=== PATIENT | male | born 1950 | race Caucasian/White ===

== ENCOUNTER 2019-04-09 22:58 | Emergency (ER) | payer MEDICARE, BC, SELFPAY ==
[2019-04-09 23:00] VITALS: BP 150/90; PULSE 69; RESP 15; TEMP 36.8; O2SAT 97; BMI 27.2
--- NOTE | 2019-04-09 23:20 | DI.RAD.S_ITS ---
PROCEDURE: XR CHEST 1V INDICATIONS: chest pain TECHNIQUE: One view of the chest was acquired. COMPARISON: [facility], CT, ABDOMEN/PELVIS WITH CONTRAST, 03/06/2017, 0:24. [facility], CR, CHEST 2 VIEW, 01/24/2010, 12:30. FINDINGS: Surgical changes and devices: None. Lungs and pleura: Lungs are clear. No pleural effusions or pneumothorax. Mediastinum: Mediastinal contours appear normal. Heart size is normal. Moderate to large retrocardiac hiatal hernia. Bones and chest wall: No suspicious bony lesions. Overlying soft tissues appear unremarkable. IMPRESSION: No acute cardiopulmonary disease process. Dictated by: Sammie Hope MD, PhD on 04/10/2019 at 7:31 Approved by: Sammie Hope MD, PhD on 04/10/2019 at 7:32
[2019-04-09] MEDS: PANTOPRAZOLE 40 MG VIAL IV (23:28)
[2019-04-09 23:35] LABS: Add Manual Diff / Slide Review NO; Basophils Absolute Auto 0 /uL (0-100); Basophils Percent Auto 0.3 % (0-2); Eosinophils Absolute Auto 200 /uL (0-450); Eosinophils Percent Auto 2.3 % (2-4); Hematocrit 47.1 % (41-53); Hemoglobin 16.3 g/dL (13.5-17.5); Lymphocytes Absolute Auto 1600 /uL (1100-4500); Lymphocytes Percent Auto 21.5 % (25-40); Mean Corpuscular HGB Conc 34.5 % (30-36); Mean Corpuscular Hemoglobin 31.9 PG (26-34); Mean Corpuscular Volume 92.6 fL (80-100); Monocytes Absolute Auto 600 /uL (0-900); Monocytes Percent Auto 7.9 % (3-14); Neutrophils Absolute Auto 5000 /uL (1500-7000); Platelet Count 205 X10^3/uL (150-400); Red Blood Cell Count 5.09 X10^6/uL (4.5-5.9); Red Cell Distribution Width 14.7 % (11.6-14.8); White Blood Cell Count 7.4 X10^3/uL (4.5-11.0)
[2019-04-09 23:58] LABS: Alanine Aminotransferase 36 IU/L (21-72); Albumin Globulin Ratio 1.4 (1.0-2.8); Alkaline Phosphatase 60 U/L (38-126); Aspartate Aminotransferase 30 IU/L (17-59); Bilirubin Total 0.6 mg/dL (0.2-1.3); Blood Urea Nitrogen 22 mg/dL (9-20); Calcium 9.3 mg/dL (8.4-10.2); Carbon Dioxide 25 mmol/L (22-32); Chloride 103 mmol/L (98-107); Creatine Kinase 73 U/L (55-170); Estimated Glomerular Filt Rate > 60.0 mL/min (>60); Globulin 2.9 g/dL (1.7-4.1); Glucose 117 mg/dL (80-110); HEMOLYSIS 16 (0-50); Lipase 505 U/L (23-300); Potassium 4.1 mmol/L (3.4-5.1); Sodium 138 mmol/L (137-145); Total Protein 6.9 g/dL (6.3-8.2)
[2019-04-10] VITALS: BP 128/71; PULSE 65; RESP 14; O2SAT 94
[2019-04-10 00:08] LABS: Prothrombin Time 11.7 SECONDS (10.1-12.7)
[2019-04-10 00:09] LABS: Troponin I < 0.012 ng/mL (0.01-0.034)
[2019-04-10 00:11] LABS: PTT Partial Thromboplastin Tim 29 SECONDS (26.4-36.2)
--- NOTE | 2019-04-10 00:44 | ED.CHESTPAIN ---
HPI - Chest Pain General Chief Complaint: Chest Pain Stated Complaint: CHEST PAIN Time Seen by Provider: 04/10/19 00:27 Source: patient Mode of arrival: ambulatory Limitations: no limitations History of Present Illness HPI narrative: The patient developed epigastric pain radiating to the chest about 5:00 p.m. this evening. The pain shot from the epigastric area up through his chest. There is no associated back pain. He has no dyspnea. He has no nausea, vomiting or diarrhea. He has a known history of GERD. He is on no GI medications. He admits to having tolerance only for small meals. He is not having chronic pain frequently. He has not coughed up any blood. He has no significant cardiac history. While driving here the pain went away. There is no history of gallbladder disease or gallstones. He is a nonsmoker. He does not drink significant alcohol. He has no history of pancreatitis. Related Data Home Medications Medication Instructions Recorded Confirmed anastrozole 1 mg PO QDAY #0 04/28/17 05/23/18 testosterone cypionate 200 mg IM X1 #0 04/28/17 05/23/18 [Depo-Testosterone] Previous Rx's Medication Instructions Recorded omeprazole magnesium [Prilosec OTC] 20 mg PO QDAY #30 03/06/17 [Zaaz therapeutic dev] ea #1 01/03/18 Allergies Allergy/AdvReac Type Severity Reaction Status Date / Time No Known Drug Allergies Allergy Verified 05/23/18 10:28 Review of Systems Review of Systems ROS Unobtainable: All systems reviewed & are unremarkable except as noted in HPI and below Constitutional Denies body ache(s), Denies chills, Denies fatigue, Denies fever(s), Denies lethargy and Denies weakness Eyes Denies change in vision and Reports other (No color change to his eyes.) ENT Ears, Nose, Mouth, and Throat: Denies neck pain and Denies sore throat Cardiovascular Denies chest pain, Denies lightheadedness, Denies palpitations, Denies dyspnea and Denies orthopnea Respiratory Denies cough, Denies dyspnea and Denies wheezing Gastrointestinal Gastrointestinal: Reports abdominal pain, Denies bloating, Denies change in bowel habits, Reports early satiety, Denies diarrhea, Denies nausea and Denies vomiting Genitourinary Denies dysuria Musculoskeletal Denies back pain and Denies neck pain Integumentary/Breasts Denies rash, Denies wounds and Denies jaundice Neurologic Denies confusion and Denies weakness Psychiatric Denies anxiety, Denies confusion, Denies depression, Denies homicidal ideation and Denies suicidal ideation Endocrine Denies fatigue and Denies palpitations Allergic/Immunologic Denies wheezing [facility] Surgical History Hx of eye surgery (Resolved 1972) Family History Father Emphysema lung Mother No problems noted. Social History Smoking Status: Never smoker alcohol intake: never substance use type: does not use Family History Father Emphysema lung Mother No problems noted. Social History Smoking Status: Never smoker alcohol intake: never substance use type: does not use Exam Initial Vital Signs Initial Vital Signs: Vital Signs Temperature 98.3 F 04/09/19 23:00 Pulse Rate 69 04/09/19 23:00 Respiratory Rate 15 04/09/19 23:00 Blood Pressure 150/90 H 04/09/19 23:00 Pulse Oximetry 97 04/09/19 23:00 Const General: cooperative and well developed Nutritional Appearance: well nourished Orientation: alert, awake and oriented x3 HENMT Head: normocephalic and atraumatic Face and sinus: sinuses nontender and No dry mucous membranes Mouth: oral mucosae normal Throat: tonsils normal and uvula midline Eyes General: appearance normal, both eyes and all related structures Eyelids: eyelids normal Conjunctivae: conjunctivae normal Sclera: sclerae normal Pupils: PERRL EOM: EOM intact bilaterally Resp Effort & Inspection: normal respiratory effort, able to speak in complete sentences, no respiratory distress and no use of accessory muscles Auscultation: clear to auscultation bilaterally, no rales, no rhonchi and no wheezes Cardio Rate: regular rate Rhythm: regular rhythm Heart Sounds: no click, no gallops, no murmurs and no rubs Pulses: normal peripheral pulses GI Inspection: non-distended Palpation: soft, no hepatosplenomegaly, No guarding, No pulsatile mass and No tender Auscultation: normal bowel sounds Skin General: no rashes or lesions noted, No jaundice and No petechiae Neuro General: alert, oriented x3, gait normal and no focal motor deficits Speech: speech normal Extrem General: full ROM, no clubbing, cyanosis or edema, no pedal edema and no calf tenderness Psych Appearance: well kempt Mental Status: mental status grossly normal Attitude: cooperative Thought Content: normal and suicidality Judgment: judgment good Course Orders Ordered: ED Orders 04/09/19 23:15 Complete Blood Count AUTO DIFF Stat Comprehensive Metabolic Panel Stat Lipase Stat Partial Thromboplastin Time Stat Prothrombin Time INR Stat Troponin & CK Cardiac Panel Stat 04/09/19 23:20 XR chest 1V Stat EKG-12 Lead Stat 04/10/19 00:45 US abdomen limited Stat Discontinued Medications Pantoprazole Sodium (Protonix) 40 mg IV NOW ONE Stop: 04/09/19 23:26 Last Admin: 04/09/19 23:28 Dose: 40 mg Vital Signs - 8 hr 04/09/19 23:00 04/10/19 00:00 04/10/19 01:05 Temperature 98.3 F Pulse Rate 69 65 67 Respiratory Rate 15 14 21 Blood Pressure 150/90 H Blood Pressure [Left Arm] 128/71 151/84 H Pulse Oximetry 97 94 96 04/10/19 01:30 04/10/19 02:28 Temperature Pulse Rate 64 66 Respiratory Rate 14 10 L Blood Pressure Blood Pressure [Left Arm] 122/79 131/68 Pulse Oximetry 97 96 MDM - Chest Pain Lab Data Result diagrams: 04/09/19 23:15 04/09/19 23:15 Lab Results 04/09/19 04/09/19 04/09/19 Range/Units 23:15 23:15 23:15 WBC 7.4 (4.5-11.0) X10^3/uL RBC 5.09 (4.5-5.9) X10^6/uL Hgb 16.3 (13.5-17.5) g/dL Hct 47.1 (41-53) % MCV 92.6 (80-100) fL MCH 31.9 (26-34) PG MCHC 34.5 (30-36) % RDW 14.7 (11.6-14.8) % Plt Count 205 (150-400) X10^3/uL Neut % (Auto) 68.0 (50-75) % Lymph % (Auto) 21.5 L (25-40) % [place] % (Auto) 7.9 (3-14) % Eos % (Auto) 2.3 (2-4) % Baso % (Auto) 0.3 (0-2) % Neut # (Auto) 5000 (0555-2621) /uL Lymph # (Auto) 1600 (7714-6734) /uL [place] # (Auto) 600 (0-900) /uL Eos # (Auto) 200 (0-450) /uL Baso # (Auto) 0 (0-100) /uL PT 11.7 (10.1-12.7) SECONDS INR 1.0 (0.9-1.3) APTT 29 (26.4-36.2) SECONDS Sodium 138 (137-145) mmol/L Potassium 4.1 (3.4-5.1) mmol/L Chloride 103 (98-107) mmol/L Carbon Dioxide 25 (22-32) mmol/L BUN 22 H (9-20) mg/dL Creatinine 1.00 (0.66-1.25) mg/dL Estimated GFR > 60.0 (>60) mL/min BUN/Creatinine Ratio 22.0 (6-22) Glucose 117 H (80-110) mg/dL Calcium 9.3 (8.4-10.2) mg/dL Total Bilirubin 0.6 (0.2-1.3) mg/dL AST 30 (17-59) IU/L ALT 36 (21-72) IU/L Alkaline Phosphatase 60 (38-126) U/L Total Creatine Kinase 73 (55-170) U/L CK-MB (CK-2) TNP CK-MB (CK-2) Rel Index TNP Troponin I < 0.012 (0.01-0.034) ng/mL Total Protein 6.9 (6.3-8.2) g/dL Albumin 4.0 (3.5-5.0) g/dL Globulin 2.9 (1.7-4.1) g/dL Albumin/Globulin Ratio 1.4 (1.0-2.8) Lipase 505 H (23-300) U/L Imaging Data US - abdomen: Radiologist's impression: 1. The pancreas is not well visualized due to overlying bowel gas. 2. The gallbladder contains a tiny 3 mm polyp. No further findings. 3. No gallstones or biliary ductal dilatation. ECG Data Attestation: I personally reviewed and interpreted this ECG as follows: (Normal sinus rhythm rate 69 beats per minute. No acute ST T wave changes. No ectopy. Normal intervals.) Discharge Plan Departure Patient Disposition: Home Clinical Impression: Pancreatitis Discharge Date/Time: 04/10/19 02:54 Interventions: ED Discharge Assessment Last Done: 04/10/19 02:53 Instructions: Acute Pancreatitis Activity Restrictions/Additional Instructions: I would recommend a high water, low-fat diet for the next few days. Contact Dr. Ignacio Myles in [place] to arrange follow-up. Return to the ER for increasing pain, fever or vomiting. Prescriptions: No Action omeprazole magnesium [Prilosec OTC] 20 MG tablet,delayed release (DR/EC) 20 mg PO QDAY Qty: 30 RF: 0 anastrozole 1 MG tablet 1 mg PO QDAY Qty: 0 RF: 0 testosterone cypionate [Depo-Testosterone] 200 MG/1 ML oil 200 mg IM X1 Qty: 0 RF: 0 [Zaaz therapeutic dev] Qty: 1 RF: 0
--- NOTE | 2019-04-10 00:45 | DI.US.S_ITS ---
PROCEDURE: US ABDOMEN LIMITED INDICATIONS: PANCREATITIS TECHNIQUE: Real-time focused scanning was performed of the abdomen, with image documentation. COMPARISON: None. FINDINGS: Liver is normal size and echotexture where well visualized. Left lobe of the liver is poorly visualized due to bowel gas. Small 3.1 mm polyp is noted in the gallbladder. No gallbladder wall thickening. No pericholecystic fluid. No gallstones. No sonographic Gabriel sign. No intrahepatic or extrahepatic biliary tree dilatation. The common bile duct measures 6.6 mm. Pancreas obscured by bowel gas and cannot be evaluated. IMPRESSION: 1. Pancreas obscured by bowel gas and cannot be evaluated. 2. 3 mm gallbladder polyp. 4. No cholelithiasis or biliary ductal dilatation Dictated by: Sammie Hope MD, PhD on 04/10/2019 at 8:07 Approved by: Sammie Hope MD, PhD on 04/10/2019 at 8:08
[2019-04-10 01:05] VITALS: BP 151/84; PULSE 67; RESP 21; O2SAT 96
[2019-04-10 01:30] VITALS: BP 122/79; PULSE 64; RESP 14; O2SAT 97
[2019-04-10 02:28] VITALS: BP 131/68; PULSE 66; RESP 10; O2SAT 96
== END 2019-04-10 02:54 | disposition home or self-care (01) ==
PROVIDERS: Emergency Provider Emergency Medicine
DX: K85.90 Acute pancreatitis without necrosis or infection, unspecified (principal); R07.89 Other chest pain
CPT/HCPCS: 36591; 71045; 76705; 80053; 82550; 82553; 83690; 84484; 85025; 85610; 85730; 93005; 93010; 96374; 99283; 99285; C9113

== ENCOUNTER → 2019-05-01 15:42 | Outpatient (CLI) | payer MEDICARE, BC, SELFPAY ==
--- NOTE | 2019-05-01 | DI.MRI.S_ITS ---
PROCEDURE: MR ABDOMEN WO CON INDICATIONS: Acute pancreatitis without necrosis or infection TECHNIQUE: Coronal HASTE through the abdomen, axial 2-D FLASH in- and [id number], and breath-hold T2 FSE with fat saturation through the biliary system and pancreas. Oblique coronal and axial thin-slice HASTE, radial thick-slab HASTE centered on the extrahepatic bile ducts. Intravenous secretin: Not requested. COMPARISON: [facility], , ABDOMEN LIMITED, 04/10/2019, 1:11. FINDINGS: Image quality: Excellent. Pancreas and biliary system: Intra- and extra-hepatic biliary ducts are non dilated. Pancreas is normal in morphology, without adjacent soft tissue edema. Pancreatic duct is normal in caliber, without developmental anomalies. Gallbladder does not appear inflamed or to contain gallstones. Other solid organs: Liver is normal in size. Spleen is normal in size. No adrenal nodules. Both kidneys are normal in size, without hydronephrosis. Nodes and vessels: No retroperitoneal or mesenteric adenopathy by size criteria. Aorta and inferior vena cava are normal in size. Bowel and peritoneum: Unenhanced bowel loops are normal in caliber. No free fluid. Note is made of a large hiatal hernia behind the heart with a morphology suggestive of gastric inversion possibly with the greater curvature of the stomach directed cephalad within the lower posterior chest. Lung bases: No basal pleural effusions. Heart size is normal. Bones and soft tissues: No ventral hernias. Bone marrow is of normal overall signal. IMPRESSION: A common duct calculus is not found, peripancreatic edema is not identified. Pancreatitis has been reported clinically, but appears mild in overall severity. A pancreatic mass is not seen. Note is made of a large hiatal hernia behind the heart, with a morphology suggestive of gastric inversion with the greater curvature of the stomach appearing directed cephalad. No associated inflammation. Dictated by: Taras Dang M.D. on 05/01/2019 at 17:18 Approved by: Taras Dang M.D. on 05/01/2019 at 17:21
== END ==
PROVIDERS: PCP Internal Medicine; Visit Provider Internal Medicine
DX: K85.90 Acute pancreatitis without necrosis or infection, unspecified (principal); K44.9 Diaphragmatic hernia without obstruction or gangrene
CPT/HCPCS: 74181

== ENCOUNTER → 2021-07-21 15:14 | Outpatient (CLI) | payer MEDICARE, BC, SELFPAY ==
--- NOTE | 2021-07-21 | DI.RAD.S_ITS ---
PROCEDURE: XR FOOT LT MIN 3V INDICATIONS: PAIN TECHNIQUE: 3 views of the foot were acquired. COMPARISON: [facility], , FOOT 3V RIGHT, 04/28/2017, 10:29. FINDINGS: Bones: No fractures or dislocations. No suspicious bony lesions. Mild hallux valgus metatarsus prima varus alignment and medial bunion. Mild 1st MTP and diffuse interphalangeal joint space narrowing. Retrocalcaneal bone spur. Soft tissues: No tibiotalar joint effusion. Achilles tendon appears normal. IMPRESSION: 1. Mild hallux valgus alignment and medial bunion. 2. Mild 1st MTP and diffuse interphalangeal joint degeneration. 3. Calcaneal enthesopathy. Dictated by: Blayne Quiroga [facility] Interpreted: Crow Mosquera MD on 07/21/2021 at 16:05 Transcribed by: CHRISTA on 07/21/2021 at 16:06 Approved by: Crow Mosquera M.D. on 07/21/2021 at 17:04
--- NOTE | 2021-07-21 | DI.RAD.S_ITS ---
PROCEDURE: XR THORACIC SPINE 3V INDICATIONS: PAIN TECHNIQUE: 3 views of the thoracic spine were acquired. COMPARISON: None. FINDINGS: Bones: No fractures or dislocations. No suspicious bony lesions. 12 pairs of ribs are noted, and appear intact where visualized. Mild dextrocurvature centered at the T5 level. Mild multilevel disc degeneration. Soft tissues: No paravertebral stripe thickening. IMPRESSION: Mild multilevel disc degeneration. Dictated by: Blayne Quiroga [facility] Interpreted: Crow Mosquera MD on 07/21/2021 at 16:09 Transcribed by: CHRISTA on 07/21/2021 at 16:09 Approved by: Crow Mosquera M.D. on 07/21/2021 at 17:05
--- NOTE | 2021-07-21 | DI.RAD.S_ITS ---
PROCEDURE: XR FOOT RT MIN 3V INDICATIONS: PAIN TECHNIQUE: 3 views of the foot were acquired. COMPARISON: [facility], , FOOT 3V RIGHT, 04/28/2017, 10:29. FINDINGS: Bones: No fractures or dislocations. No suspicious bony lesions. Mild hallux valgus metatarsus prima varus alignment and medial bunion. Mild 1st MTP and diffuse interphalangeal joint space narrowing with periarticular osteophyte formation. Subluxation and/or dislocation of the 2nd through 4th TMT joints. Correlate clinically. Soft tissues: No tibiotalar joint effusion. Achilles tendon appears normal. IMPRESSION: 1. Hallux valgus alignment and medial bunion. 2. 1st MTP and diffuse interphalangeal joint degeneration. 3. 2nd through 4th TMT joint subluxation and/or dislocation Dictated by: Blayne Quiroga [facility] Interpreted: Crow Mosquera MD on 07/21/2021 at 16:06 Transcribed by: CHRISTA on 07/21/2021 at 16:08 Approved by: Crow Mosquera M.D. on 07/21/2021 at 17:05
--- NOTE | 2021-07-21 | DI.RAD.S_ITS ---
PROCEDURE: XR LUMBAR SPINE 2-3V INDICATIONS: PAIN TECHNIQUE: 3 views of the lumbar spine were acquired. COMPARISON: None. FINDINGS: Bones: 5 [id number] vertebrae are present. Mild levoscoliosis. Trace multilevel retrolisthesis. Multilevel disc degeneration, severe at the L5-S1 level. Moderate L4-L5 and L4-S1 facet joint arthropathy.. No vertebral body compression fractures. No suspicious bony lesions. Soft tissues: Overlying bowel gas pattern is normal. No suspicious soft tissue calcifications. Vascular calcifications indicate atherosclerosis. IMPRESSION: Multilevel spondylosis. Dictated by: Blayne Quiroga [facility] Interpreted: Crow Mosquera MD on 07/21/2021 at 16:08 Transcribed by: CHRISTA on 07/21/2021 at 16:09 Approved by: Crow Mosquera M.D. on 07/21/2021 at 17:05
== END ==
PROVIDERS: PCP Student in an Organized Health Care Education/Training Program; Referring Provider Chiropractor; Visit Provider Chiropractor
DX: M79.672 Pain in left foot (principal); M79.671 Pain in right foot; M54.5 Low back pain; M20.12 Hallux valgus (acquired), left foot; M20.11 Hallux valgus (acquired), right foot; M21.612 Bunion of left foot; M21.611 Bunion of right foot; M19.072 Primary osteoarthritis, left ankle and foot; M19.071 Primary osteoarthritis, right ankle and foot; M77.32 Calcaneal spur, left foot; S93.321A Subluxation of tarsometatarsal joint of right foot, initial encounter; M51.34 Other intervertebral disc degeneration, thoracic region; M47.816 Spondylosis without myelopathy or radiculopathy, lumbar region; M47.817 Spondylosis without myelopathy or radiculopathy, lumbosacral region
CPT/HCPCS: 72072; 72100; 73630

== ENCOUNTER → 2021-07-27 09:54 | Outpatient (CLI) | payer MEDICARE, BC, SELFPAY ==
[2021-07-27 12:04] LABS: COVID19 -Nasal RAPID Negative (Negative)
== END ==
PROVIDERS: PCP Student in an Organized Health Care Education/Training Program; Visit Provider Physician Assistant
DX: Z20.822 Contact with and (suspected) exposure to COVID-19 (principal); Z01.812 Encounter for preprocedural laboratory examination
CPT/HCPCS: 87635; C9803

== ENCOUNTER 2021-07-29 07:24 | Day surgery (SDC) | payer MEDICARE, BC, SELFPAY ==
[2021-07-29] VITALS (7 sets, daily range): BP systolic 104–127; BP diastolic 59–70; PULSE 56–70; RESP 12–16; TEMP 36.4; O2SAT 97–100; BMI 27.2
[2021-07-29] MEDS: SODIUM CHLORIDE 0.9% 1,000 ML 125 ML IV (08:29)
--- NOTE | 2021-07-29 08:30 | PM.HP.1 ---
History of Present Illness History of Present Illness Date Patient Seen: 07/29/21 Chief complaint: COLONOSCOPY Narrative: Ten year screening colonoscopy Patient History Medical History (Updated 03/17/21 @ 23:44 by REJI Elena) Basal cell carcinoma (~11/2017) BPH (benign prostatic hyperplasia) (Unknown) Dyslipidemia (~09/2017) GERD (gastroesophageal reflux disease) (Unknown) Hiatal hernia (Unknown) Low testosterone (Unknown) Obstructive sleep apnea syndrome Plantar fasciitis (Unknown) Shoulder pain, right (02/2017) Snoring Surgical History Hx of eye surgery (1972) Family & Social History Family History Father Emphysema lung Mother No problems noted. Social History: household members spouse Tobacco & Substance use: Smoking Status Never smoker alcohol intake current alcohol intake frequency holiday/special occasion Substance Use Type does not use Meds Home Medications and Allergies Home Medications Medication Instructions Recorded Confirmed Type omeprazole magnesium 20 mg 20 mg PO QDAY #30 03/06/17 07/29/21 Rx tablet,delayed release (Prilosec OTC) [Zaaz therapeutic dev] 1 tab PO DAILY 07/29/21 07/29/21 History rosuvastatin 20 mg tablet 20 mg PO DAILY 07/29/21 07/29/21 History Allergies Allergy/AdvReac Type Severity Reaction Status Date / Time No Known Drug Allergies Allergy Verified 07/29/21 07:53 Exam Vital Signs (past 8 hours): - 07/29/21 07:56 Temperature 97.5 F L Pulse Rate 64 Respiratory Rate 14 Blood Pressure 112/65 Pulse Oximetry 97 Oxygen Delivery Method Room Air Narrative Exam Narrative: Oropharynx free of lesions Chest clear to auscultation percussion Cardiac exam reveals no S3 or murmur Assessment & Plan Assessment & Plan narrative: Need for 10 year screening colonoscopy. Risks, benefits, alternatives have been explained.
--- NOTE | 2021-07-29 08:32 | PM.OP.ENDO ---
Operative Date/Time/Diagnoses Date of procedure: 07/29/21 Pre-op diagnosis: See indication and findings Procedure & Clinicians Study performed: Screening colonoscopy Indications: Screening Surgeon: Kath James Procedure Notes Procedure in detail: After informed consent was obtained the patient was placed in left lateral decubitus position. The video colonoscope was introduced the rectum slowly advanced to cecum. On slow withdrawal mucosa was carefully examined. The scope was removed. The patient tolerated procedure well. Preparation was good. Blood loss none Complications none Sedation Mac Findings 1. Scattered diverticulosis throughout the sigmoid colon. 2. Moderate internal hemorrhoids 3. Otherwise negative colonoscopy to cecum. Mr. June will need follow-up colonoscopy in 10 years.
== END 2021-07-29 09:30 | disposition home or self-care (01) ==
PROVIDERS: PCP Student in an Organized Health Care Education/Training Program; Referring Provider Internal Medicine Gastroenterology; Visit Provider Internal Medicine Gastroenterology
PROC: 0DJD8ZZ Inspection of Lower Intestinal Tract, Via Natural or Artificial Opening Endoscopic (ICD-10-PCS; CPT 45378; principal; 2021-07-29 08:30)
DX: Z12.11 Encounter for screening for malignant neoplasm of colon (principal); K57.30 Diverticulosis of large intestine without perforation or abscess without bleeding; K64.8 Other hemorrhoids
CPT/HCPCS: G0121

== ENCOUNTER → 2025-04-19 13:58 | Outpatient (CLI) | payer MEDICARE, BC, SELFPAY ==
--- NOTE | 2025-04-19 14:00 | DI.CT.S_ITS ---
PROCEDURE: CT ABDOMEN PELVIS W CON INDICATIONS: periumbilical pain TECHNIQUE: After the administration of intravenous contrast, axial sections acquired from the lung bases to the pubic symphysis. Coronal and sagittal reformats were performed. For radiation dose reduction, the following was used: automated exposure control, adjustment of mA and/or kV according to patient size. COMPARISON: [facility], CT, ABDOMEN/PELVIS WITH CONTRAST, 03/06/2017, 0:24. FINDINGS: Image quality: Diagnostic. Lower Chest: Lung bases are clear. Moderate coronary artery calcifications. ABDOMEN: Liver: No solid mass. Gallbladder: No radiopaque gallstones or wall thickening. Biliary ducts: No biliary dilation. Pancreas: No ductal dilation. Spleen: Size is within normal limits. Adrenal Glands: No adrenal nodules. Kidneys and Ureters: No hydronephrosis. No solid mass. No complex renal cystic lesion which requires follow up. Stomach and Bowel: Status post repair of prior hiatal hernia. Normal colonic caliber, without significant wall thickening. Diverticulosis without evidence of acute diverticulitis. Moderate stool burden throughout the colon. Peritoneum: No abnormal intraperitoneal fluid. No free air. Ventral Wall: No significant ventral hernia. Abdominal Nodes: Rounded lymph node within the right upper quadrant mesentery measuring 1.2 x 0.9 cm with few additional adjacent prominent lymph nodes. No retroperitoneal or mesenteric adenopathy by size criteria. Vessels: Aorta and inferior vena cava are normal in size. Atherosclerotic vascular calcifications. PELVIS: Pelvic Organs: Prostatomegaly. Bladder: No bladder wall thickening, accounting for underdistention. Pelvic Nodes: No enlarged lymph nodes. Miscellaneous: No inguinal hernias are seen. Bones: No aggressive osseous abnormality. Degenerative changes of the spine. IMPRESSION: 1. No acute findings within the abdomen or pelvis to explain patient's symptoms. 2. There is a prominent rounded lymph node within the right upper quadrant mesentery measuring 1.2 x 0.9 cm with few adjacent mildly prominent lymph nodes, just posterior to the colon. No definite colonic mass is seen by CT. Consider colonoscopy screening for further evaluation and follow-up CT scan. 3. Diverticulosis without evidence of acute diverticulitis. Moderate stool burden throughout the colon. Dictated by: Hasmukh Santos M.D. on 04/20/2025 at 15:08 Approved by: Hasmukh Santos M.D. on 04/20/2025 at 15:17
[2025-04-19 14:28] LABS: Estimated Glomerular Filt Rate > 60 mL/min (>60)
== END ==
PROVIDERS: PCP Nurse Practitioner Family; Referring Provider Physician Assistant; Visit Provider Physician Assistant
DX: K57.90 Diverticulosis of intestine, part unspecified, without perforation or abscess without bleeding (principal); I25.10 Atherosclerotic heart disease of native coronary artery without angina pectoris; N40.0 Benign prostatic hyperplasia without lower urinary tract symptoms; R10.33 Periumbilical pain; R10.31 Right lower quadrant pain; G89.29 Other chronic pain
CPT/HCPCS: 36415; 74177; 82565; Q9967

== ENCOUNTER → 2025-09-18 14:24 | Outpatient (CLI) | payer MEDICARE, BC, SELFPAY ==
--- NOTE | 2025-09-20 07:32 | DI.NM.S_ITS ---
DATE OF SERVICE: 09/18/2025 PROCEDURE: Exercise perfusion study. INDICATIONS: Coronary artery calcification, hyperlipidemia, chest pain. CARDIAC STRESS: The patient underwent exercise perfusion study under the supervision of an attending staff. He walked on Jorge protocol for 10 minutes and 54 seconds, achieved maximum heart rate of 169, which was 117% predicted value, 11.7 METs of workload, and MARC -76%. Resting blood pressure 116/70 and peak blood pressure 180/80 mmHg. Baseline rhythm was sinus. During peak exercise, the patient has up to [address] depression in leads V5 and V6 as well as II, which recovered within 1 minute in recovery. The patient has occasional isolated PVCs during stress. As per the midlevel who supervised the stress test, the patient had 3-beat run of NSVT; however, I did not see that rhythm strip. No chest pain. The patient had some shortness of breath. Normal recovery. RAW DATA: There is increased subdiaphragmatic activity. GATED STUDY: Resting LV ejection fraction 55% and stress LV ejection fraction 80% without any obvious wall motion abnormalities. Resting end- diastolic volume 97 mL. TID ratio 0.74, which is within normal limit. Lung/heart ratio 0.37, which is within normal limit. MYOCARDIAL PERFUSION SCAN: Stress supine, resting supine, and stress prone images were compared to each other. Resting supine images revealed [id number] size, mildly decreased perfusion of inferior wall extending into the infero-apex. It got completely resolved during stress prone images. Stress prone images revealed normal myocardial perfusion. In fact, stress supine images also revealed normal myocardial perfusion. CONCLUSION: This is a normal myocardial perfusion study. The patient has excellent exercise tolerance. MARC -76%. He walked on Jorge protocol for 10 minutes and 54 seconds. Normal hemodynamic response. No chest pain. Mildly abnormal stress EKG with quick recovery as stated above. Occasional isolated PVCs as per the midlevel 3-beat run of NSVT seen during stress; however, I do not have that rhythm strip available. Preserved LV function. As far as perfusion scan is concerned, this is a low-risk myocardial perfusion scan. Tyrese June - LANDON/ledy/ELAINA doc#: [id number]/job#: [id number] dd: 09/19/2025 13:03:00 dt: 09/19/2025 15:33:00 DICTATING MD/COPIES TO: Mateo Mills MD COPIES MNE: NAMRATA;
== END ==
PROVIDERS: PCP Nurse Practitioner Family; Referring Provider Nurse Practitioner Family; Visit Provider Internal Medicine Cardiovascular Disease
DX: I25.10 Atherosclerotic heart disease of native coronary artery without angina pectoris (principal); R07.9 Chest pain, unspecified; E78.5 Hyperlipidemia, unspecified
CPT/HCPCS: 78452; 93017; A9502